=== PATIENT | female | born 1995 | race African-American/Black ===

== ENCOUNTER 2017-04-27 12:28 | Outpatient (CLI) | payer BC, OTHER ==
[~2017-04-27] VITALS: Ht 162.6 cm; Wt 77.0 kg
[~2017-04-27 12:28] MED LIST: HYDR-906 PO; IBUP-1542 PO
[2017-04-27 12:57] VITALS: Ht 162.6 cm; Wt 77.0 kg
[2017-04-27 12:59] VITALS: BP 112/67; PULSE 112; RESP 20
--- NOTE | 2017-04-27 14:20 | RADRPT ---
PROCEDURE: US biophysical profile. CLINICAL INDICATION: Decreased motion. No care. TECHNIQUE: Multiple sonographic images of the uterus were obtained. Transvaginal sonograp hy of the cervix was also performed. The images were reviewed on a PACS workstation. COMPARISON: No prior studies are available for comparison. FINDINGS: There is a single live intrauterine gestation. heart rate is 131 beats per minute. The position is cephalic. The placenta is anterior grade 1-2 with no abruption or previa. The JF is 11.8 cm. (Normal = 5-20 cm.) Cervical length is 4.5 cm. Breathing Movement: 2 Gross Body Movement: 2 Tone: 2 Qualitative Amniotic Fluid Volume: 2 TOTAL: 8 IMPRESSION: 1. The biophysical score is 8/8. 2. Cervical length is 4.5 cm. RPTAT: QQ .Javier Matson MD, Date Time Electronically viewed and signed by .Javier Matson MD, MD on 04/27/2017 14:20 .R/
--- NOTE | 2017-04-27 14:37 | RADRPT ---
PROCEDURE: US OB. CLINICAL INDICATION: No care. Uncertain size and dates. TECHNIQUE: Multiple sonographic images of the uterus were obtained. The images were revi ewed on a PACS workstation. COMPARISON: No prior studies are available for comparison. FINDINGS: There is a single live intrauterine gestation. heart rate is 157 beats per minute. Measurements were made in order to determine age. The results are as follows: BPD = 8.90 cm. HC = 32.00 cm. AC = 32.59 cm. FL = 6.81 cm. Estimated weight is 2829 +/- 424 grams. LMP growth percentile is 17.7 %. Menstrual age by ultrasound dates is 35 weeks 6 days. The estimated date of delivery is 05/26/2017. Position is cephalic and placenta is anterior grade 1-2. There is no evidence for an abruption or pl acenta previa. IMPRESSION: 1. Single live intrauterine gestation of 35 weeks 6 days menstrual age by ultrasound dates. 2. The estimated date of delivery is 05/26/2017. RPTAT: QQ .Javier Matson MD, MD Date Time Electronically viewed and signed by .Javier Matson MD, on 04/27/2017 14:36 .R/
[2017-04-27 14:48] LABS: ABNORMAL IP MESSAGE 1; BASOPHILS % 0.1 % (0.0-2.0); EOSINOPHILS # 0.1 10^3/ul (0.0-0.5); EOSINOPHILS % 0.8 % (0.0-7.0); HEMATOCRIT 31.3 % (37.0-47.0); HEMOGLOBIN 9.8 g/dl (12.0-16.0); LYMPHOCYTES # 1.1 10^3/ul (0.8-2.9); LYMPHOCYTES % 12.6 % (15.0-51.0); MEAN CORPUSCULAR HEMOGLOBIN 25.8 pg (29.0-33.0); MEAN CORPUSCULAR HGB CONC 31.3 g/dl (32.0-37.0); MEAN CORPUSCULAR VOLUME 82.4 fl (82.0-101.0); MEAN PLATELET VOLUME 9.9 fl (7.4-10.4); MONOCYTE # 0.6 10^3/ul (0.3-0.9); NEUTROPHILS % 78.8 % (39.0-77.0); PLATELET COUNT 278 10^3/UL (140-415); RED CELL DISTRIBUTION WIDTH 23.5 % (11.5-14.5); WHITE BLOOD COUNT 8.7 10^3/ul (4.8-10.8)
[2017-04-27 14:52] LABS: POSITIVE DIFF @See below
[2017-04-27 14:54] LABS: BARBITURATES Negative (NEGATIVE); BENZODIAZEPINES Negative (NEGATIVE); CANNABINOIDS Positive (NEGATIVE); COCAINE Negative (NEGATIVE); OPIATES Negative (NEGATIVE)
[2017-04-27 15:00] LABS: ADD UMIC YES; UR ASCORBIC ACID NEGATIVE (NEGATIVE); UR BACTERIA FEW /HPF (NONE SEEN); UR BILIRUBIN (Dip) NEGATIVE (NEGATIVE); UR BLOOD (Dip) NEGATIVE (NEGATIVE); UR CLARITY SLIGHTLY CLOUDY (CLEAR); UR COLOR YELLOW (YELLOW); UR GLUCOSE (Dip) 2+ mg/dL (NEGATIVE); UR KETONES (Dip) NEGATIVE (NEGATIVE); UR LEUKOCYTE ESTERASE (Dip) TRACE Leu/ul (NEGATIVE); UR MUCUS FEW /HPF (NONE SEEN); UR NITRITE (Dip) NEGATIVE (NEGATIVE); UR RBC 1 /HPF (0-5); UR SPECIFIC GRAVITY (Dip) 1.018 (1.003-1.030); UR SQUAMOUS EPITHELIAL CELL FEW /HPF (FEW); UR TOTAL PROTEIN (Dip) NEGATIVE (NEGATIVE); UR UROBILINOGEN (Dip) NEGATIVE (NEGATIVE)
[2017-04-27 15:07] LABS: ALBUMIN 3.2 g/dl (3.3-4.9); ALBUMIN/GLOBULIN RATIO 0.94; CALCIUM 8.6 mg/dl (8.4-10.2); CREATININE 0.5 mg/dl (0.44-1.00); POTASSIUM 3.5 mmol/L (3.5-5.1); TOTAL PROTEIN 6.6 g/dl (6.1-8.1)
--- NOTE | 2017-04-27 16:52 | CONS ---
Date/Time of Note Date/Time of Note DATE: 04/27/17 TIME: 16:43 Consultation Date/Type/Reason Admit Date/Time April 27, 2017 OB triage consult Reason for Consultation This patient is a 21 years old 4 para 1 therapeutic 1 spontaneous 2 living 1 with estimated date of confinement of May 12, 2017 which makes her 37 weeks and 6 days now. She came to triage complaining of lower abdominal pain contractions. She does not have a very regular visits On examination she is pretty well-developed well-nourished lady near term. She says she is allergic to tomato also on her examination marijuana was reported. Her general vital signs appear to be normal with blood pressure 112/67 pulse rate of 112, respiration 20, temperature 98.5, heart tone was 140 bpm. Does have occasional contractions not very frequent. heart tone appears to be normal with good variability and acceleration no T-cell. Hx of Present Illness Laboratory Tests Test 04/27/17 13:38 04/27/17 14:18 04/27/17 14:22 Urine Color YELLOW Urine Clarity SLIGHTLY CLOUDY Urine pH 6.0 Urine Specific [place] 1.018 Urine Ketones NEGATIVEmg/dL Urine Nitrite NEGATIVEmg/dL Urine Bilirubin NEGATIVEmg/dL Urine Urobilinogen NEGATIVEmg/dL Urine Leukocyte Esterase TRACELeu/ul Urine Microscopic RBC 1/HPF Urine Microscopic WBC 2/HPF Urine Squamous Epithelial Cells FEW/HPF Urine Bacteria FEW/HPF Urine Mucus FEW/HPF Urine Hemoglobin NEGATIVEmg/dL Urine Glucose 2+mg/dL Urine Total Protein NEGATIVEmg/dl Urine Opiates Screen Negative Urine Barbiturates Negative Urine Amphetamines Screen Positive Urine Benzodiazepines Screen Negative Urine Cocaine Screen Negative Urine Cannabinoids Positive Sodium Level 140mmol/L Potassium Level 3.5mmol/L Chloride Level 104mmol/L Carbon Dioxide Level 25mmol/L Anion Gap 15 Blood Urea Nitrogen 3mg/dl Creatinine 0.50mg/dl Glucose Level 71mg/dl Calcium Level 8.6mg/dl Total Bilirubin 0.0mg/dl Direct Bilirubin 0.00mg/dl Indirect Bilirubin 0.0mg/dl Aspartate Amino Transf (AST/SGOT) 18IU/L Alanine Aminotransferase (ALT/SGPT) 26IU/L Alkaline Phosphatase 140IU/L Total Protein 6.6g/dl Albumin 3.2g/dl Globulin 3.40g/dl Albumin/Globulin Ratio 0.94 Hepatitis B Surface Antigen NEGATIVE Hepatitis B Surface Antibody NEGATIVE HIV (1&2) Antibody NEGATIVE White Blood Count 8.710^3/ul Red Blood Count 3.8010^6/ul Hemoglobin 9.8g/dl Hematocrit 31.3% Mean Corpuscular Volume 82.4fl Mean Corpuscular Hemoglobin 25.8pg Mean Corpuscular Hemoglobin Concent 31.3g/dl Red Cell Distribution Width 23.5% Platelet Count 84024^3/UL Mean Platelet Volume 9.9fl Neutrophils % 78.8% Lymphocytes % 12.6% Monocytes % 7.0% Eosinophils % 0.8% Basophils % 0.1% Nucleated Red Blood Cells % 0.0/100WBC Neutrophils # (Manual) 6.910^3/ul Lymphocytes # 1.110^3/ul Monocytes # 0.610^3/ul Eosinophils # 0.110^3/ul Basophils # 0.010^3/ul Nucleated Red Blood Cells # 0.010^3/ul Constitutional: chills, diaphoresis, disoriented, febrile, improved, no complaints, other, poor po, requiring IVF, requiring O2 Eyes: discharge, no complaints, other, pain, redness, visual change ENT: bleeding, congestion, discharge, dysphagia, no complaints, other, pain, sore throat Respiratory: cough, no complaints, other, pain, pleuritic pain, shortness of breath, sputum, wheezing Cardiovascular: chest pain, edema, lightheadedness, no complaints, orthopenea, other, palpitations, paroxysmal nocturnal dyspnea Gastrointestinal: blood, constipation, decreased appetite, diarrhea, flatus, nausea, no complaints, other, pain, passing stool, vomiting Genitourinary: bleeding, discharge, dysuria, flank pain, hematuria, no complaints, other (On pelvic examination the cervix was closed long no evidence of rupture of membranes) Musculoskeletal: No back pain, No bone/joint pain, No neck pain, No no complaints, No restricted range of motion, No swelling Skin: No bruising, No erythema, No laceration, No no complaints, No other, No pruritis, No rash, No skin lesions Neurologic: No confusion, No dizziness, No focal-weakness, No headache, No no complaints, No other, No seizure, No syncope Endocrine: No dry skin, No no complaints, No other, No polydypsia, No polyuria , No temp intolerance Additional Comments On laboratory study her blood test shows 2+ glucose hepatitis hepatitis surface antigen was negative we did a HIV as well as hepatitis B surface antigen both of them are pending as well as an RPR her Chem-7 and electrolytes were basically normal however her CBC was normal her hemoglobin 9.8 hematocrit 31.3 however platelet counts were normal On ultrasound study the report was a single live intrauterine gestation with heart rate of 121 bpm in cephalic presentation placenta was grade 1-2 no evidence of abruption the JF was 11.8 cm cervical length was reported 4.5 cm and a biophysical profile of 04/04 estimated weight was 2829 g 424 put her 35 weeks and 6 days gestation Disposition. These finding patient was advised to find an grain drier operator for her care to stop using marijuana to take iron pill which we did give her the prescription and to return to the hospital if in labor or any other complication End of dictation Social History Smoking Status: Current some day smoker Exam/Review of Systems Vital Signs Vitals Vital Signs Date Time Temp Pulse Resp B/P Pulse Ox O2 Delivery O2 Flow Rate FiO2 04/27/17 12:59 98.5 112 20 112/67 Room Air Results Result Diagram: 04/27/17 1422 04/27/17 1418 Results 24 hrs Laboratory Tests Test 04/27/17 13:38 04/27/17 14:18 04/27/17 14:22 Urine Color YELLOW Urine Clarity SLIGHTLY CLOUDY A Urine pH 6.0 Urine Specific [place] 1.018 Urine Ketones NEGATIVE Urine Nitrite NEGATIVE Urine Bilirubin NEGATIVE Urine Urobilinogen NEGATIVE Urine Leukocyte Esterase TRACE A Urine Microscopic RBC 1 Urine Microscopic WBC 2 Urine Squamous Epithelial Cells FEW Urine Bacteria FEW A Urine Mucus FEW A Urine Hemoglobin NEGATIVE Urine Glucose 2+ H Urine Total Protein NEGATIVE Urine Opiates Screen Negative Urine Barbiturates Negative Urine Amphetamines Screen Positive Urine Benzodiazepines Screen Negative Urine Cocaine Screen Negative Urine Cannabinoids Positive Sodium Level 140 Potassium Level 3.5 Chloride Level 104 Carbon Dioxide Level 25 Anion Gap 15 Blood Urea Nitrogen 3 L Creatinine 0.50 Glucose Level 71 Calcium Level 8.6 Total Bilirubin 0.0 L Direct Bilirubin 0.00 Indirect Bilirubin 0.0 Aspartate Amino Transf (AST/SGOT) 18 Alanine Aminotransferase (ALT/SGPT) 26 Alkaline Phosphatase 140 H Total Protein 6.6 Albumin 3.2 L Globulin 3.40 H Albumin/Globulin Ratio 0.94 Hepatitis B Surface Antigen NEGATIVE Hepatitis B Surface Antibody NEGATIVE HIV (1&2) Antibody NEGATIVE White Blood Count 8.7 # Red Blood Count 3.80 L Hemoglobin 9.8 L Hematocrit 31.3 L Mean Corpuscular Volume 82.4 Mean Corpuscular Hemoglobin 25.8 L Mean Corpuscular Hemoglobin Concent 31.3 L Red Cell Distribution Width 23.5 #H Platelet Count 278 Mean Platelet Volume 9.9 Neutrophils % 78.8 H Lymphocytes % 12.6 L Monocytes % 7.0 Eosinophils % 0.8 Basophils % 0.1 Nucleated Red Blood Cells % 0.0 Neutrophils # (Manual) 6.9 Lymphocytes # 1.1 Monocytes # 0.6 Eosinophils # 0.1 Basophils # 0.0 Nucleated Red Blood Cells # 0.0 SALINA PIERRE MD Apr 27, 2017 16:52
[2017-04-27] MEDS ORDERED: FER325 PO (17:14)
--- NOTE | 2017-04-27 17:48 | TRIAGE ---
OB Triage Datetime Report Generated by CPN: 04/27/2017 17:47 Datetime: 04/27/2017 17:33 Stage of : AT 1700 FOOT CUTTER SOSY AT BEDSIDE AND TALKED TO PT AND PT HAS MEDICAL INSU PIERO,ENCOURAGED TO CALL INSURANCE COMPANY TO GET AN OBGYN AROUND HER AREA OF RESIDENCE,DISHARGE IN STRUCTIONS GIVEN ABOUT KICK COUNTS,AND SIGNS AND SYMPTOMS OF ACTIVE LABOR,PT VERBALIZED UNDERSTANDIN G. Datetime: 04/27/2017 17:00 Stage of : OB Triage Datetime: 04/27/2017 16:40 Labor Evaluation Frequency: 0 Monitor Mode: External Resting Tone [place]: Relaxed Heart Rate FHR Baseline Rate: 120 Monitor Mode: External US FHR Baseline Changes: No Baseline Change Variability: Moderate 6-25 bpm Accelerations: 15X15 Decelerations: None Category: Category I Datetime: 04/27/2017 16:37 Vaginal Exam Dilatation (cms): 0.0 Effacement (%): 0 Station: -3 Exam By: DR FOROOHAR Membrane Status: Intact Datetime: 04/27/2017 15:55 Labor Evaluation Frequency: 0 Monitor Mode: External Resting Tone [place]: Relaxed Heart Rate FHR Baseline Rate: 120 Monitor Mode: External US FHR Baseline Changes: No Baseline Change Variability: Moderate 6-25 bpm Accelerations: 15X15 Decelerations: None Category: Category I Datetime: 04/27/2017 15:00 Labor Evaluation Frequency: 0 Monitor Mode: External Resting Tone [place]: Relaxed Heart Rate FHR Baseline Rate: 125 Monitor Mode: External US FHR Baseline Changes: No Baseline Change Variability: Moderate 6-25 bpm Accelerations: 15X15 Decelerations: None Category: Category I Datetime: 04/27/2017 14:29 Stage of : OB Triage Datetime: 04/27/2017 14:24 Labor Evaluation Frequency: 0 (Annotations: NONE PALPATED) Monitor Mode: External Heart Rate FHR Baseline Rate: 130 Monitor Mode: External US FHR Baseline Changes: No Baseline Change Variability: Moderate 6-25 bpm Accelerations: 15X15 Decelerations: None Category: Category I Datetime: 04/27/2017 14:20 Stage of : OB Triage Datetime: 04/27/2017 13:52 EGA: 37.6 Datetime: 04/27/2017 13:33 Labor Evaluation Frequency: X1 Monitor Mode: External Duration (sec)2399: 80 Quality: Mild Pattern: Normal: <= 5 Contractions in 10 Minutes Resting Tone [place]: Relaxed Heart Rate FHR Baseline Rate: 140 Monitor Mode: External US FHR Baseline Changes: No Baseline Change Variability: Moderate 6-25 bpm Accelerations: 15X15 Decelerations: QUESTIONABLE Datetime: 04/27/2017 13:32 Stage of : OB Triage Temperature Route: Oral Pain Assessment Pain Scale: 6 Pain Presence: Intermittent Pain Type: Contraction; Pressure Pain Location: Abdomen Pain Goal: 0 Pain Relief Measures: Comfort Measures Datetime: 04/27/2017 13:31 Stage of : OB Triage Exam By: ESTRELITA [facility] Membrane Status: Intact Cervix, Consistency: Soft Cervix, Position: Posterior Datetime: 04/27/2017 13:16 Stage of : OB Triage Assessment Type: Triage Maternal Assessment Level of Consciousness: Fully Conscious DTR's/Clonus: DTRs 2+; No Clonus Headache: Denies Blurred Vision: No Respiratory Effort: Unlabored; Regular Rhythm Breath Sounds, Left: Clear and Equal Breath Sounds, Right: Clear and Equal Nausea/Vomiting: Denies RUQ Epigastric Pain: Denies Lower Extremities Edema: None Degree: None Upper Extremities Edema: None Degree: None Facial Edema: None Fall Risk Assessment History of Falling: (0) No Secondary Diagnosis: (0) No Ambulatory Aid: (0) Bedrest/Nurse Assist IV Therapy: (0) No Gait: (0) Normal/Bedrest/Immobile Mental Status: (0) Oriented to Own Ability Fall Score: 0 Fall Risk Score Definition: No Risk: No action required Datetime: 04/27/2017 13:05 Time of Arrival: 04/27/2017 12:45 EGA: 37.6 Arrived By: Ambulatory Chief Complaint: CONTRACTIONS AND VAGINAL PRESSURE Movement: Present Contractions: Irregular Contractions: IRREG (Annotations: Data stored by CPN on behalf of user) Rupture of Membranes: Denies Vaginal Discharge: Denies Recent Sexual Intercouse: Yes Abdominal Trauma: Not Applicable Patient Complaints: Contractions Time Provider Notified: 04/27/2017 13:15 Initial Plan: EFM,SVE,V/S Datetime: 04/27/2017 13:00 Labor Evaluation Frequency: 0 Monitor Mode: External Resting Tone [place]: Relaxed Heart Rate FHR Baseline Rate: 140 Monitor Mode: External US FHR Baseline Changes: No Baseline Change Variability: Moderate 6-25 bpm Accelerations: 15X15 Decelerations: None Category: Category I
[2017-04-27 22:08] LABS: RAPID PLASMA REAGIN REACTIVE (NR)
== END 2017-04-27 17:47 | disposition home or self-care (01) ==
LOC: OBT 12:28 → L-D 12:31 → OBG 12:49 → OBT 17:47
DX: O26.893 Other specified pregnancy related conditions, third trimester (principal); O62.9 Abnormality of forces of labor, unspecified; Z3A.37 37 weeks gestation of pregnancy
CPT/HCPCS: 76815; 76817; 76818; 80053; 80307; 81001; 85025; 86592; 86703; 86706; 86762; 86900; 86901; 87340; 87536; G0463

== ENCOUNTER 2017-05-16 02:21 | Inpatient (IN) | payer BC ==
[~2017-05-16] VITALS: Ht 162.6 cm; Wt 78.6 kg
[~2017-05-16 02:21] MED LIST changes: +FER325 PO; -HYDR-906 PO; -IBUP-1542 PO
[2017-05-16] MEDS ORDERED: PRENAT PO (02:53)
[2017-05-16 02:54] VITALS: Ht 162.6 cm; Wt 78.6 kg
[2017-05-16 02:55] VITALS: BP 127/73; PULSE 115; RESP 20
--- NOTE | 2017-05-16 03:21 | HP ---
Date/Time of Note Date/Time of Note DATE: 05/16/17 TIME: 03:06 OB - History Hx of Present Free Text/Dictation 21 Year-old with SIUP at 39 5/7 weeks presents with a chief complaint of SROM at 01:55 and ucs. She had no care, only seen at [facility] triage on . No further follow up. She states good movement. She denies nausea , vomiting, shortness of breath, chest pain, and abdominal pain between contractions, headache, visual changes, vaginal bleeding. Care: Other (one triage visit on 04/26/17) Obstetrical Complications: Other (Non immunerubella- +UDS, +RPR) Past Family/Social History * Past Medical, Surgical, Family and Obstetric Histories reviewed from chart. Rubella: not immune RPR/VDRL: Positive GBS Status: Unknown HBsAG: Negative OB Admission Exam Vital Signs Vital Signs Vital Signs Date Time Temp Pulse Resp B/P Pulse Ox O2 Delivery O2 Flow Rate FiO2 05/16/17 02:55 97.8 115 20 127/73 Room Air Physical Exam HEENT: WNL Heart: Rhythm Normal Abdomen: WNL Extremities: Normal Cervical Dilatation: 1cm Effacement: 75% Station: -3 Membranes: Ruptured Amniotic Fluid: Thin Meconium Heart Rate: 140's Accelerations: Accelerations Present Decelerations: No Decelerations Varibility: Moderate Contractions on Admission: < 5 Minutes Apart Intensity: Moderate OB Assessment/Plan Other plan: 21 Year-old with SIUP at 39 5/7 weeks with SROM - FHR: No sign of metabolic acidosis- Category I - Continuous EFM, toco - CBC, blood type and screen - FTA ab, HCV - UDS - Analgesia options with R/B/A discussed in detail with patient - Epidural per patient request - [employer] consult - Please see the orders 2) +RPR: Check FTA ab, if positive needs to be treated. Will inform the ped too. 3) Rubella: Non immune, will receive rubella vaccine before discharge 4) +UDS on 04/26/17: Repeat UDS Admission, procedures, expectations, risks and possible complications have been discussed in detail with the patient. Risk of vaginal delivery including but not limited to bleeding, infection, cervical laceration, placental retention, injury to fetus, blood transfusion, blood transfusion related infection, risk of anesthesia, adhesion, cervical laceration, episiotomy/laceration, possible delivery with risk of bleeding, infection, injury to other organs ( bowel, bladder, ureter, vessels, nerves), injury to fetus, blood transfusion, blood transfusion related infection, risk of anesthesia, scar and hernia formation, needs for future , removal of uterus or any other indicated surgery discussed with the patient. She expressed understanding and repeats the risks. All of her questions were answered; all appropriate consents will be signed. PHYSICIAN'S VERIFICATION OF INFORMED CONSENT: The patient was counseled regarding the procedure, its indications, risks, potential complications and alternatives and any questions were answered. Consent was obtained. PLANNED PROCEDURE/TREATMENT: Vaginal delivery with possible vacuum/forceps delivery episiotomy, repair of laceration possible delivery PHYSICIAN'S VERIFICATION OF INFORMED CONSENT FOR BLOOD TRANSFUSION: There is a reasonable possibility that blood transfusion will be necessary as a result of the patient's procedure. I have discussed the following with the patient/patient's legal customer retention representative: An explanation of the benefits and risks of the transfusion of blood or blood products and the possible alternatives. Al questions have been answered to the patient's/patients legal representatives satisfaction. INFORMED CONSENT: The patient has been informed of: - The nature of the proposed care, treatment, services, medications, interventions or procedures. - Potential benefits, risks or side effects, including potential problems related to recuperation. - The likelihood of achieving care treatment and service goals. - Reasonable alternatives to the proposed care, treatment and service. - The relevant risks, benefits and side effects related to alternatives, including the possible results of not receiving care, treatment and services. - When indicated, any limitations on the confidentiality of information learned from or about the patient. - If appropriate, the risks, benefits and alternatives of the drugs to be used for sedation/analgesia including moderate sedation. - If appropriate, patient has been provided information on the risks, benefits and alternatives to the transfusion of blood and/or blood products. GUCCI CURRIE May 16, 2017 03:16
[2017-05-16] MEDS ORDERED: LACTATED RINGER'S 1,000 ML IV PRN (03:30)
[2017-05-16] MEDS ORDERED: IBUPROFEN 600 MG TAB PO PRN (03:30)
[2017-05-16] MEDS ORDERED: PENICILLIN G K 5,000,000 UNITS in DEXTROSE 5% 100 ML IVPB ONE (03:30)
[2017-05-16] MEDS ORDERED: METHYLERGONOVINE 0.2 MG INJ IM PRN ×2 (03:30→21:30)
[2017-05-16] MEDS ORDERED: MISOPROSTOL 200 MCG TAB PR PRN ×2 (03:30→21:30)
[2017-05-16] MEDS ORDERED: BUTORPHANOL 2 MG INJ IV PRN (03:30)
[2017-05-16] MEDS ORDERED: LIDOCAINE 1% (MPF) 30 ML INJ INJ PRN (03:30)
[2017-05-16] MEDS ORDERED: CARBOPROST 250 MCG INJ IM PRN ×2 (03:30→21:30)
[2017-05-16] MEDS ORDERED: OXYCODONE/ASPIRIN (4.88/325) TAB PO PRN ×2 (03:30→21:30)
[2017-05-16] MEDS ORDERED: OXYTOCIN 30 UNITS/LR 500 ML IV SCH ×3 (03:30→08:30)
[2017-05-16] MEDS ORDERED: PENICILLIN G K 2,500,000 UNITS in DEXTROSE 5% 50 ML IVPB SCH (03:30)
[2017-05-16] MEDS ORDERED: MINERAL OIL LIGHT 10 ML VIAL TOP PRN (03:30)
[2017-05-16] MEDS ORDERED: OXYTOCIN 30 UNITS/LR 500 ML IV PRN ×2 (03:30→21:30)
[2017-05-16 04:17] LABS: BASOPHILS % 0.2 % (0.0-2.0); EOSINOPHILS % 0.3 % (0.0-7.0); HEMATOCRIT 33.3 % (37.0-47.0); HEMOGLOBIN 10.8 g/dl (12.0-16.0); LYMPHOCYTES # 2.1 10^3/ul (0.8-2.9); LYMPHOCYTES % 16.9 % (15.0-51.0); MEAN CORPUSCULAR HEMOGLOBIN 25.8 pg (29.0-33.0); MEAN CORPUSCULAR HGB CONC 32.4 g/dl (32.0-37.0); MEAN CORPUSCULAR VOLUME 79.7 fl (82.0-101.0); MEAN PLATELET VOLUME 10.5 fl (7.4-10.4); MONOCYTE # 0.7 10^3/ul (0.3-0.9); MONOCYTES % 5.8 % (0.0-11.0); NEUTROPHIL # 9.2 10^3/ul (1.6-7.5); NUCLEATED RED BLOOD CELLS% 0.2 /100WBC (0.0-0.0); PLATELET COUNT 339 10^3/UL (140-415); RED BLOOD COUNT 4.18 10^6/ul (4.20-5.40); RED CELL DISTRIBUTION WIDTH 20.9 % (11.5-14.5); WHITE BLOOD COUNT 12.1 10^3/ul (4.8-10.8)
[2017-05-16 04:22] LABS: INR 0.97; PROTIME 12.9 Sec (12.2-14.2)
[2017-05-16] MEDS ORDERED: FENTAnyl 2MCG/ML-ROPIV 0.2% 100 ML ONE (04:58)
[2017-05-16] MEDS ORDERED: NALOXONE (0.4 MG/ML) INJ IV PRN (05:30)
[2017-05-16] MEDS: LACTATED RINGER'S 1,000 ML IV SCH ×2 (05:31→10:22)
[2017-05-16 07:30] LABS: BARBITURATES Negative (NEGATIVE); BENZODIAZEPINES Negative (NEGATIVE); COCAINE Negative (NEGATIVE); OPIATES Negative (NEGATIVE)
[2017-05-16 07:33] LABS: CANNABINOIDS Positive (NEGATIVE)
[2017-05-16] MEDS: FENTAnyl 2MCG/ML-ROPIV 0.2% 100 ML BAG EPI SCH ×2 (07:47→12:50)
--- NOTE | 2017-05-16 09:08 | TRIAGE ---
OB Triage Datetime Report Generated by CPN: 05/16/2017 07:00 Datetime: 05/16/2017 06:50 Labor Evaluation Frequency: 3-4 Monitor Mode: External Duration (sec)2399: 60-80 Quality: Moderate Pattern: Normal: <= 5 Contractions in 10 Minutes Resting Tone [place]: Relaxed Heart Rate FHR Baseline Rate: 145 Monitor Mode: External US Variability: Minimal - Undetectable to <=5 bpm Accelerations: 15X15 Decelerations: None Category: Category II Pain Presence: None/Denies Pain Type: N/A Datetime: 05/16/2017 06:22 Labor Evaluation Frequency: 3-5 Duration (sec)2399: 40-60 Quality: Moderate Pattern: Normal: <= 5 Contractions in 10 Minutes Resting Tone [place]: Relaxed Heart Rate FHR Baseline Rate: 135 Monitor Mode: External US Variability: Moderate 6-25 bpm Accelerations: 15X15 Decelerations: None Category: Category I Datetime: 05/16/2017 05:50 Labor Evaluation Frequency: 2-4 Duration (sec)2399: 40-80 Quality: Moderate Pattern: Normal: <= 5 Contractions in 10 Minutes Resting Tone [place]: Relaxed Interventions: Side to Side Heart Rate FHR Baseline Rate: 125 Monitor Mode: External US Variability: Moderate 6-25 bpm Accelerations: 15X15 Decelerations: Late; Variable Category: Category II Pain Assessment Pain Scale: 0 Pain Presence: None/Denies Pain Type: N/A Datetime: 05/16/2017 05:34 Interventions: Provider Notified Datetime: 05/16/2017 05:19 Labor Evaluation Frequency: 2-4 Monitor Mode: External Duration (sec)2399: 40-80 Quality: Moderate Pattern: Normal: <= 5 Contractions in 10 Minutes Resting Tone [place]: Relaxed Interventions: Side to Side Heart Rate FHR Baseline Rate: 135 Monitor Mode: External US Variability: Moderate 6-25 bpm Accelerations: 15X15 Decelerations: Prolonged Category: Category II Comments: 3MIN PROLONG DECEL NOTED, JOANA 115BPM RETURN TO BASELINE 135 WITH INTERVENTIONS Datetime: 05/16/2017 05:00 Labor Evaluation Frequency: 2-4 Monitor Mode: External Duration (sec)2399: 60-90 Quality: Moderate Pattern: Normal: <= 5 Contractions in 10 Minutes Resting Tone [place]: Relaxed Interventions: Side to Side Heart Rate FHR Baseline Rate: 135 Monitor Mode: External US Variability: Moderate 6-25 bpm Accelerations: 15X15 Decelerations: Variable Category: Category II Pain Assessment Pain Scale: 3 Pain Presence: Intermittent Pain Type: Contraction Pain Location: Abdomen Pain Relief Measures: Epidural Given; Comfort Measures Datetime: 05/16/2017 04:10 Vaginal Exam Dilatation (cms): 3.0 Effacement (%): 80 Station: -2 Exam By: HELEN RN Membrane Status: Ruptured Vaginal Bleeding: Normal Show Datetime: 05/16/2017 04:04 Assessment Type: Admission Assessment Vaginal Bleeding: None Maternal Assessment Level of Consciousness: Fully Conscious DTR's/Clonus: DTRs 2+; No Clonus Headache: Denies Blurred Vision: No Respiratory Effort: Unlabored; Regular Rhythm; Equal Expansion Breath Sounds, Left: Clear and Equal Breath Sounds, Right: Clear and Equal Nausea/Vomiting: Denies RUQ Epigastric Pain: Denies Lower Extremities Edema: None Degree: None Upper Extremities Edema: None Degree: None Facial Edema: None Fall Risk Assessment History of Falling: (0) No Secondary Diagnosis: (0) No Ambulatory Aid: (0) Bedrest/Nurse Assist IV Therapy: (20) Yes Gait: (0) Normal/Bedrest/Immobile Mental Status: (0) Oriented to Own Ability Fall Score: 20 Fall Risk Score Definition: No Risk: No action required Labor Evaluation Frequency: 2-4 Monitor Mode: External Duration (sec)2399: 60-90 Quality: Moderate Pattern: Normal: <= 5 Contractions in 10 Minutes Resting Tone [place]: Relaxed Heart Rate FHR Baseline Rate: 135 Monitor Mode: External US Variability: Moderate 6-25 bpm Accelerations: 15X15 Decelerations: Variable Category: Category II Pain Assessment Pain Scale: 8 Pain Presence: Intermittent Pain Type: Contraction Pain Location: Abdomen Datetime: 05/16/2017 03:56 Time of Arrival: 05/16/2017 03:40 EGA: 38.4 Arrived By: Stretcher Arrived From: TRIAGE Datetime: 05/16/2017 03:18 Time of Arrival: 05/16/2017 02:43 EGA: 38.4 Arrived By: Stretcher Arrived From: TRIAGE Datetime: 05/16/2017 03:00 Labor Evaluation Frequency: 2-5 Monitor Mode: External Duration (sec)2399: 50-120 Quality: Mild Pattern: Normal: <= 5 Contractions in 10 Minutes Resting Tone [place]: Relaxed Heart Rate FHR Baseline Rate: 145 Monitor Mode: External US Variability: Moderate 6-25 bpm Accelerations: 15X15 Decelerations: Variable Category: Category II Datetime: 05/16/2017 02:35 Vaginal Exam Dilatation (cms): 1.0 Effacement (%): 60 Station: -3 Exam By: SHINE Hernandez Membrane Status: Meconium Membranes Rupture Method: Spontaneous Amniotic Fluid Color: Light Meconium Amniotic Fluid Amount: Moderate Amniotic Fluid Odor: Normal Vaginal Bleeding: None Cervix, Consistency: Soft Cervix, Position: Posterior Datetime: 05/16/2017 02:29 Stage of : OB Triage Assessment Type: Triage Maternal Assessment Level of Consciousness: Fully Conscious DTR's/Clonus: DTRs 2+; No Clonus Headache: Denies Blurred Vision: No Respiratory Effort: Unlabored; Regular Rhythm; Equal Expansion Breath Sounds, Left: Clear and Equal Breath Sounds, Right: Clear and Equal Nausea/Vomiting: Denies RUQ Epigastric Pain: Denies Lower Extremities Edema: None Degree: None Upper Extremities Edema: None Degree: None Facial Edema: None Temperature Route: Oral Fall Risk Assessment History of Falling: (0) No Secondary Diagnosis: (0) No Ambulatory Aid: (0) Bedrest/Nurse Assist IV Therapy: (0) No Gait: (0) Normal/Bedrest/Immobile Mental Status: (0) Oriented to Own Ability Fall Score: 0 Fall Risk Score Definition: No Risk: No action required Pain Assessment Pain Scale: 8 Pain Presence: Intermittent Pain Type: Cramping; Contraction Pain Location: Abdomen; Back Pain Relief Measures: Comfort Measures Datetime: 05/16/2017 02:28 Stage of : OB Triage Heart Rate FHR Baseline Rate: 145 Monitor Mode: External US Comments: EFM applied Datetime: 05/16/2017 02:27 Stage of : OB Triage Monitor Mode: External Contraction Comments: [place] applied Datetime: 05/16/2017 02:26 Time of Arrival: 05/16/2017 02:15 EGA: 38.4 Arrived By: Wheelchair Arrived From: Home Chief Complaint: SROM @0155 Movement: Present Contractions: Regular Time Contractions Began: 05/16/2017 01:55 Contractions: q3mins Rupture of Membranes: Ruptured Vaginal Bleeding: None Vaginal Discharge: Present Abdominal Trauma: Not Applicable Patient Complaints: Contractions; Cramping; Back Pain Time Provider Notified: 05/16/2017 02:43 Provider Notified: Initial Plan: EFM x2, VE Datetime: 04/27/2017 17:00 Pain Assessment Pain Scale: 0 Pain Presence: None/Denies Pain Goal: 0 Datetime: 04/27/2017 15:00 Stage of : OB Triage Pain Assessment Pain Scale: 0 Pain Presence: None/Denies Datetime: 04/27/2017 13:52 EGA: 35.6 Datetime: 04/27/2017 13:16 Fall Score: 0 Fall Risk Score Definition: No Risk: No action required Datetime: 04/27/2017 13:05 EGA: 37.6 Datetime: 04/27/2017 13:04 Membranes Ruptured Date/Time: 05/16/2017 01:55 Membranes Rupture Method: Spontaneous Amniotic Fluid Color: Light Meconium Amniotic Fluid Amount: Small Amniotic Fluid Odor: None
[2017-05-16] MEDS: PENICILLIN G K 2,500,000 UNITS in DEXTROSE 5% 50 ML IVPB SCH ×3 (09:21→17:00)
--- NOTE | 2017-05-16 09:23 | CONS ---
Date/Time of Note Date/Time of Note DATE: 05/16/17 TIME: 09:22 Assessment/Plan Assessment/Plan Additional Assessment/Plan 1. Syphilis - patient found to have + RPR on 04/27 and + FTA Ab but did not receive treatment prior to this admission - Given one dose of PCN G - Infectious disease consulted for further management and appreciate recommendations - No signs of lesions or rashes at this time. Has only been with 1 partner since 2. Intrauterine - Management per primary team Thank you for this consult. Please call with any questions Consultation Date/Type/Reason Admit Date/Time May 16, 2017 at 02:37 Date of Consultation: May 16, 2017 Reason for Consultation + RPR with + confirmatory test Referring Provider: GUCCI CURRIE of Present Illness Patient is a 21 yr F who presented due to SROM at 39 5/7 weeks. She is noted to not have any care but was seen at [facility] 04/26/17. She was found to have +RPR and + confirmatory test. She was given a dose of PCN G which she tolerated well and medicine was consulted for further management. Patient states she has only been with one partner and believes he may have Syphilis as well. She denies any lesions, rashes, dizziness, confusion, headaches, nausea, vomiting, chest pain, or shortness of breath. She has been feeling good movement and only c/o feeling nervous about the delivery. Constitutional: No chills, No diaphoresis, No disoriented, No febrile Eyes: no complaints ENT: no complaints Respiratory: No cough, No shortness of breath, No sputum Cardiovascular: No chest pain, No lightheadedness, No palpitations Gastrointestinal: No constipation, No decreased appetite, No diarrhea, No nausea Genitourinary: no complaints Musculoskeletal: no complaints Skin: no complaints, No bruising, No pruritis, No rash Neurologic: No confusion, No dizziness, No focal-weakness, No headache Endocrine: no complaints Lymphatic: no complaints Psychological: anxiety, No confusion, No depression Immunologic: no complaints Past Medical History Medical History: no pertinent history Past Surgical History Past Surgical Hx: no surgical history Family History Significant Family History: no pertinent family hx Social History Alcohol Use: none Smoking Status: Current every day smoker Drug Use: none Exam/Review of Systems Vital Signs Vitals Vital Signs Date Time Temp Pulse Resp B/P Pulse Ox O2 Delivery O2 Flow Rate FiO2 05/16/17 02:55 97.8 115 20 127/73 Room Air Intake and Output 05/15/17 05/15/17 05/16/17 15:00 23:00 07:00 Intake Total 1000 ml Balance 1000 ml Exam Constitutional: alert, oriented, well developed Psych: anxiety, no complaints Head: atraumatic, normocephalic Eyes: EOMI, nl conjunctiva, nl sclera ENMT: mucosa pink and moist Neck: non-tender, supple Respiratory: clear to auscultation, normal air movement, No crackles/rales, No diminished breath sounds, No wheezing Cardiovascular: nl pulses, regular rate and rhythm, No murmurs/extra sounds Gastrointestinal: nl liver, spleen, non-tender, other (distended secondary to ), soft, No rebound or guarding Musculoskeletal: nl extremities to inspection, nl gait and stance Extremities: normal pulses Neurological: CONTINUUM OF CARE MANAGER II-XII intact, nl mental status, nl speech, nl strength Skin: nl turgor Lymph: nl lymph nodes Results Result Diagram: 05/16/17 0240 Results 24 hrs Laboratory Tests Test 05/16/17 02:40 05/16/17 05:05 White Blood Count 12.1 #H Red Blood Count 4.18 L Hemoglobin 10.8 L Hematocrit 33.3 L Mean Corpuscular Volume 79.7 L Mean Corpuscular Hemoglobin 25.8 L Mean Corpuscular Hemoglobin Concent 32.4 Red Cell Distribution Width 20.9 H Platelet Count 339 # Mean Platelet Volume 10.5 H Neutrophils % 76.0 Lymphocytes % 16.9 Monocytes % 5.8 Eosinophils % 0.3 Basophils % 0.2 Nucleated Red Blood Cells % 0.2 H Neutrophils # 9.2 H Lymphocytes # 2.1 Monocytes # 0.7 Eosinophils # 0.0 Basophils # 0.0 Nucleated Red Blood Cells # 0.0 Prothrombin Time 12.9 Prothrombin Time Ratio 1.0 INR International Normalized Ratio 0.97 Activated Partial Thromboplast Time 25.0 Hepatitis C Antibody NEGATIVE Urine Opiates Screen Negative Urine Barbiturates Negative Urine Amphetamines Screen Positive Urine Benzodiazepines Screen Negative Urine Cocaine Screen Negative Urine Cannabinoids Positive Medications Medications Current Medications Lactated Ringer's (Lr) 1,000 ml @ 125 mls/hr Q8H IV Last administered on t 05:31; Admin Dose 125 MLS/HR; Start 05/16/17 at 03:01 Butorphanol Tartrate (Stadol) 2 mg Q2H PRN IV PAIN; Start 05/16/17 at 03:30 Lidocaine 30 ml 30 ml ONCE PRN INJ EPISIOTOMY/TEARING; Start 05/16/17 at 03:30 Oxytocin/Lactated Ringer's 500 ml @ 125 mls/hr ONCE IV ; Start 05/16/17 at 03: 30 Ibuprofen (Motrin) 600 mg ONCE PRN PO Mild Pain (Pain Score 1-3); Start at 03:30 Oxycodone/Aspirin 2 tab 2 tab ONCE PRN PO Moderate to Severe Pain (4-10); Start 05/16/17 at 03:30 Lactated Ringer's 1,000 ml @ 2,000 mls/hr Q30M PRN IV PRE-EPIDURAL BOLUS Last administered on 05/16/17 03:59; Admin Dose 2,000 MLS/HR; Start 05/16/17 at 03: 30 Oxytocin/Lactated Ringer's 500 ml @ 0 mls/hr ONCE PRN IV For Hemorrhage Management; Start 05/16/17 at 03:30 Methylergonovine Maleate (Methergine) 0.2 mg ONCE PRN IM VAGINAL BLEEDING; Start 05/16/17 at 03:30 Carboprost Tromethamine (Hemabate) 250 mcg ONCE PRN IM VAGINAL BLEEDING; Start 05/16/17 at 03:30 Misoprostol (Cytotec) 1,000 mcg ONCE PRN AR VAGINAL BLEEDING; Start 05/16/17 at 03:30 Mineral Oil (Muri-Lube) 20 ml ONCE PRN TOP vaginal delivery; Start 05/16/17 at 03:30 Naloxone HCl 0.2 mg 0.2 mg Q2M PRN IV FOR RESP RATE 8 OR LESS; Start 05/16/17 at 05:30 Penicillin G Potassium [id number] units/Dextrose 50 ml @ 100 mls/hr Q4H IVPB Last administered on 05/16/17 09:21; Admin Dose 100 MLS/HR; Start 05/16/17 at 09:00 Oxytocin/Lactated Ringer's 500 ml @ 0 mls/hr Q0M IV Last administered on 08:53; Admin Dose 1 MLS/HR; Start 05/16/17 at 08:30 SHRUTHI CORTES MD May 16, 2017 09:23
--- NOTE | 2017-05-16 14:33 | QN ---
Documentation Comment Neonatology consultation Consultation 05/16/17. Consultation was requested by Dr. Carl. Reason for consultation RPR positive with positive FTA confirmed. Baby Tanner is a 21-year-old 4 para 1 AB 2 at 38-4/7 weeks admitted via ER panel without care documented. She is in labor and had no care. She denies health issues except for having had a positive syphilis test, was treated at about 7 months but apparently has been reinfected. Her boyfriend previously also has been treated. Her blood type is A+ , RPR is positive hepatitis B surface antigen negative HIV negative group B strep unknown. Substance abuse panel is positive for methamphetamines as well as THC. She admits to having used methamphetamines approximately 2 days ago. Social history she has recently been in intermediate for about a month, at which time she was treated for her syphilis. This was presumably because of failed visits with her agricultural technical officer. Her intermediate time was quite a while ago. She has one previous child about 3 years old and lives with the dad, according to her saying there is no open DCFS case. Her boyfriend, the father of her present is not the same as the previous child. She had 2 abortions many years ago. I explained my role as a regional manager to help ensure the health of the baby, requiring that the baby first of all will need to be examined tested and treated for congenital syphilis, and including spinal tap to exclude neurosyphilis for which the treatment would be slightly different. We will also be required to send urine and cord tissue for drug screening and possibly DCFS might be involved as a result. She appears appropriately concerned and asked question if she could breast-feed the baby and if the baby will go home with her after the treatment and I tried to give the most realistic answers where just depends on DCFS and their findings. I answered all her questions. When the baby is born the cord tissue and urine need to be collected and the baby needs to come to the NICU for evaluation and diagnostic tests and start of treatment. Thank you for allowing me to be of assistance in the care of this family. Signature JAZZY Bear MD May 16, 2017 14:33
--- NOTE | 2017-05-16 15:37 | LDN ---
Date/Time of Note Date/Time of Note DATE: 05/16/17 TIME: 15:36 Delivery Summary Weeks of Gestation 39+ Assisted Vaginal Delivery: Vacuum (2 pop off Bradycardia) Placenta Delivered: Spontaneously Meconium: Thick Episiotomy: No Perineal laceration: 2 Anesthesia type: Epidural Estimated blood loss: 200 Sponge & Needle done & correct: Yes All needle counts correct: Yes Any foreign bodies felt in the: No Problems: Infant Delivery Information Sex Sex: female Apgars 1 Minute: 8 5 Minute: 9 Suctioning Nose & mouth suctioned at hi: Yes Delee suction performed: Yes Umbilical Cord Umbilical cord with: 3 Vessels Cord presentations: nuchal cord (x1) Cord Blood was obtained: Yes Mother & Baby Disposition Disposition Mom & Baby to Maternity; Good: Yes Baby to NICU: Yes LINDEN SALES M.D. May 16, 2017 15:37
[2017-05-16 16:04] LABS: RAPID PLASMA REAGIN REACTIVE (NR)
--- NOTE | 2017-05-16 20:46 | CONS ---
DATE OF ADMISSION: 05/16/2017 DATE OF CONSULTATION: 05/16/2017 REASON FOR CONSULTATION: Antibiotic management. HISTORY OF PRESENT ILLNESS: Valarie Hart is a 21-year-old female who is admitted now 39 weeks , with a diagnosis of syphilis. As noted, she is 21-year-old, G4, P1-0-21 with SIUP at 39 and 5/7 weeks, with SROM. She was noted to have a positive RPR and also a positive FTA. Rubella, she is not immune. She will receive rubella vaccine before discharge. LABORATORY: On admission, her white count was 12.1, H and H of 10.8 and 33.3, platelet count of 339,000. As noted, serologies, hepatic surface antigen is negative. Surface hepatitis C is negative, and HIV 1 and 2 are negative. She is positive for amphetamines on a drug screen. PAST MEDICAL HISTORY: As outlined, none. FAMILY HISTORY: Noncontributory. SOCIAL HISTORY: She is an everyday smoker. She does not drink or abuse drugs, at least during her . She has multiple tattoos. ALLERGIES: NONE TO PENICILLIN, SULFA, OR FOODS. MEDICATION: Per chart. REVIEW OF SYSTEMS: As per HPI. PHYSICAL EXAMINATION: GENERAL: On physical examination, patient is a well-developed, well-nourished female who is alert, responsive, in no acute distress. VITAL SIGNS: Stable. She is afebrile. SKIN: Without generalized rash. As noted, multiple tattoos all over her body, arms and abdomen included. HEENT: Within normal limits. NECK: Supple. Lymph nodes nonpalpable. CHEST: Decreased breath sounds at the bases. HEART: Without murmur or gallop. ABDOMEN: Soft. She is 39 weeks . There is no hepatosplenomegaly noted. EXTREMITIES: Without cyanosis, clubbing, or edema. RECTAL: Deferred. GENITAL: Deferred. NEUROLOGICAL: No focal neurological abnormalities. IMPRESSION: Patient was found to have positive RPR and FTA. According to her, she was treated about 3 months ago with 3 shots of benzathine penicillin 2.1 million units weekly for 3 weeks. She now has been treated with high-dose penicillin. I concur with this regimen. I will dictate my findings to the hospitalist as well as to Dr. Crane and to Dr. Schmidt. Dictated By: Ming Laguerre MD JD/héctor/alba /Document#: [id number]
[2017-05-16 21:15] VITALS: BP 118/65; PULSE 84; RESP 18
[2017-05-16] MEDS ORDERED: LANOLIN 7 GM TUBE TOP PRN (21:30)
[2017-05-16] MEDS ORDERED: SENNA/DOCUSATE NA (8.6MG/50MG) TAB PO PRN (21:30)
[2017-05-16] MEDS ORDERED: BENZOCAINE 20% 56 ML SPRAY TOP PRN (21:30)
[2017-05-16] MEDS: LACTATED RINGER'S 1,000 ML IV* SCH (21:30)
[2017-05-16] MEDS ORDERED: WITCH HAZEL/GLYCERIN PAD PR PRN (21:30)
[2017-05-16] MEDS ORDERED: ZOLPIDEM 5 MG TAB PO PRN (21:30)
[2017-05-16] MEDS: IBUPROFEN 600 MG TAB PO SCH (23:50)
[2017-05-17] MEDS: LACTATED RINGER'S 1,000 ML IV* SCH ×3 (05:30→21:30)
[2017-05-17] MEDS: IBUPROFEN 600 MG TAB PO SCH ×4 (06:16→23:54)
[2017-05-17 08:32] VITALS: BP 119/64; PULSE 81; RESP 16
[2017-05-17] MEDS: SENNA/DOCUSATE NA (8.6MG/50MG) TAB PO SCH ×2 (10:47→23:54)
[2017-05-17 11:27] LABS: BASOPHILS % 0.2 % (0.0-2.0); EOSINOPHILS # 0.1 10^3/ul (0.0-0.5); HEMATOCRIT 31.5 % (37.0-47.0); HEMOGLOBIN 9.9 g/dl (12.0-16.0); LYMPHOCYTES # 2.2 10^3/ul (0.8-2.9); LYMPHOCYTES % 18.1 % (15.0-51.0); MEAN CORPUSCULAR HEMOGLOBIN 25.7 pg (29.0-33.0); MEAN CORPUSCULAR HGB CONC 31.4 g/dl (32.0-37.0); MEAN CORPUSCULAR VOLUME 81.8 fl (82.0-101.0); MEAN PLATELET VOLUME 10.2 fl (7.4-10.4); MONOCYTE # 0.8 10^3/ul (0.3-0.9); MONOCYTES % 6.1 % (0.0-11.0); NEUTROPHIL # 9.1 10^3/ul (1.6-7.5); NEUTROPHILS % 73.9 % (39.0-77.0); NUCLEATED RED BLOOD CELLS% 0.2 /100WBC (0.0-0.0); PLATELET COUNT 300 10^3/UL (140-415); RED BLOOD COUNT 3.85 10^6/ul (4.20-5.40); RED CELL DISTRIBUTION WIDTH 21.4 % (11.5-14.5); WHITE BLOOD COUNT 12.3 10^3/ul (4.8-10.8)
[2017-05-17 18:26] LABS: FLUORESCENT TREPONEMAL AB REACTIVE (NON-REACTIVE)
--- NOTE | 2017-05-17 18:35 | PN ---
Date/Time of Note Date/Time of Note DATE: 05/17/17 TIME: 18:33 OB Subjective Subjective Subjective . Denies any complaint is not breast-feeding due to. Positive urine tox screen. Vaginal bleeding reports is mild. Ambulating without any symptom. Urinated. OB Objective Objective Objective Hematology - 72 Hrs Test 05/16/17 02:40 05/17/17 11:03 White Blood Count 12.110^3/ul (4.8-10.8) #H 12.310^3/ul (4.8-10.8) H Red Blood Count 4.1810^6/ul (4.20-5.40) L 3.8510^6/ul (4.20-5.40) L Hemoglobin 10.8g/dl (12.0-16.0) L 9.9g/dl (12.0-16.0) L Hematocrit 33.3% (37.0-47.0) L 31.5% (37.0-47.0) L Mean Corpuscular Volume 79.7fl (82.0-101.0) L 81.8fl (82.0-101.0) L Mean Corpuscular Hemoglobin 25.8pg (29.0-33.0) L 25.7pg (29.0-33.0) L Mean Corpuscular Hemoglobin Concent 32.4g/dl (32.0-37.0) 31.4g/dl (32.0-37.0) L Red Cell Distribution Width 20.9% (11.5-14.5) H 21.4% (11.5-14.5) H Platelet Count 32584^3/UL (140-415) # 80155^3/UL (140-415) Mean Platelet Volume 10.5fl (7.4-10.4) H 10.2fl (7.4-10.4) Neutrophils % 76.0% (39.0-77.0) 73.9% (39.0-77.0) Lymphocytes % 16.9% (15.0-51.0) 18.1% (15.0-51.0) Monocytes % 5.8% (0.0-11.0) 6.1% (0.0-11.0) Eosinophils % 0.3% (0.0-7.0) 1.0% (0.0-7.0) Basophils % 0.2% (0.0-2.0) 0.2% (0.0-2.0) Nucleated Red Blood Cells % 0.2/100WBC (0.0-0.0) H 0.2/100WBC (0.0-0.0) H Neutrophils # 9.210^3/ul (1.6-7.5) H 9.110^3/ul (1.6-7.5) H Lymphocytes # 2.110^3/ul (0.8-2.9) 2.210^3/ul (0.8-2.9) Monocytes # 0.710^3/ul (0.3-0.9) 0.810^3/ul (0.3-0.9) Eosinophils # 0.010^3/ul (0.0-0.5) 0.110^3/ul (0.0-0.5) Basophils # 0.010^3/ul (0.0-0.1) 0.010^3/ul (0.0-0.1) Nucleated Red Blood Cells # 0.010^3/ul (0.0-0.0) 0.010^3/ul (0.0-0.0) General appearance: Alert and oriented 4. Patient does not appear to be in any acute distress. Abdomen: Soft, fundus palpable below the umbilicus and firm and nontender. Extremities: No calf tenderness, no click no edema no cords palpable Breast: No evidence of engorgement or mastitis OB Assessment/Plan Other Assessment: Status post day #1 U tox positive for amphetamine and marijuana adult day care worker consult requested Continue routine care DCFS in case ELEN NUNEZ MD May 17, 2017 18:35
[2017-05-17 22:00] VITALS: BP 112/61; PULSE 75; RESP 18
[2017-05-18 04:00] VITALS: BP 105/53; PULSE 65; RESP 18
[2017-05-18] MEDS: LACTATED RINGER'S 1,000 ML IV* SCH (05:30)
[2017-05-18] MEDS: IBUPROFEN 600 MG TAB PO SCH ×2 (05:45→12:14)
[2017-05-18 08:15] VITALS: BP 131/81; PULSE 68; RESP 18
[2017-05-18] MEDS ORDERED: DIPHTH/TET/ACEL PERTUSS (ADULT) 0.5 ML VIAL IM* ONE (09:00)
[2017-05-18] MEDS: SENNA/DOCUSATE NA (8.6MG/50MG) TAB PO SCH (09:18)
--- NOTE | 2017-05-18 14:02 | PD.PPDC ---
CHILD AND FAMILY THERAPIST Discharge Instruction Condition Patient Condition: Good Diet Diet: Resume Regular Diet Activity/Restrictions Activity: Normal Activity Restrictions: No Sexual Activity No [place] No Tampons, douche Follow-up Follow-up with Physician: 1, Week/Weeks Provider Information: call our obgyn, [facility] or any STD clinic for follow up in one week. you need to complete your treatment for syphilis for two more penicillin injection and further follow up. Return to clinic for ENVELOPE STUFFER Instructions: Fever greater than 101 Worsening abdominal pain Excessive Vaginal Bleeding SHUKRI DANIELSON MD May 18, 2017 14:02
--- NOTE | 2017-05-18 21:32 | DS ---
DATE OF ADMISSION: 05/16/2017 DATE OF DISCHARGE: 05/18/2017 FINAL DIAGNOSES: 1. Status post normal spontaneous vaginal delivery at 39 weeks plus. 2. No care. 3. Substance abuse. 4. Positive testing for syphilis. HOSPITAL COURSE: The patient is a 21-year-old, who presented with no care at term, who went to deliver . The patient status post delivery was found to have positive RPR test and a positive FTA test for syphilis. The patient says she had been treated 3 months ago with 3 shots. During hospital course the patient received 1 dose of penicillin and treatment course. Infectious disease consult was also obtained. The patient upon discharge was found to be in stable condition. PHYSICAL EXAMINATION: VITAL SIGNS: Within normal limits. HEART: Regular rhythm. ABDOMEN: Soft, nontender, no guarding. EXTREMITIES: No edema. FOLLOWUP: The patient instructed that she must followup with her PUBLIC POLICY COORDINATOR, clinic center, or STD clinic in 1 week for followup for her testing evaluation of the syphilis, and more than that, she needs further treatment of the penicillin. The patient understood and was discharged home in a stable condition. Dictated By: Braden Aranda MD /héctor/andrea /Document#: [id number]
== END 2017-05-18 13:45 | disposition home or self-care (01) | DRG 774 ==
LOC: OBT 02:21 → L-D 02:25 → OBT 02:37 → L-D 02:37 → PP1 21:14
PROVIDERS: ADMIT Obstetrics & Gynecology; ATTEND Obstetrics & Gynecology
PROC: 10D07Z6 Extraction of Products of Conception, Vacuum, Via Natural or Artificial Opening (ICD-10-PCS; principal; 2017-05-16)
DX: O98.12 Syphilis complicating childbirth (principal); O99.323 Drug use complicating pregnancy, third trimester; Z37.0 Single live birth; F15.90 Other stimulant use, unspecified, uncomplicated; Z3A.39 39 weeks gestation of pregnancy; F12.90 Cannabis use, unspecified, uncomplicated; O77.0 Labor and delivery complicated by meconium in amniotic fluid; O99.333 Smoking (tobacco) complicating pregnancy, third trimester
CPT/HCPCS: 62319; 80307; 85025; 85610; 85730; 86592; 86703; 86803; 86885; 86900; 86901; 87081; 87285; 87340; 90715; 99464; G0463; J2590; J3010; J7120

== ENCOUNTER 2017-10-04 00:26 | Inpatient (IN) | END 2017-10-07 22:10 | disposition left against medical advice (07) | DRG 603 ==

== ENCOUNTER 2017-10-08 06:04 | Inpatient (IN) | END 2017-10-08 20:00 | disposition home or self-care (01) | DRG 603 ==

== ENCOUNTER 2018-04-18 01:09 | Emergency (ER) | END 2018-04-18 10:39 | disposition home or self-care (01) ==